=== PATIENT | female | born 1990 | race African-American/Black ===

== ENCOUNTER 2018-08-27 12:17 | Emergency (ER) | payer OTHER ==
[~2018-08-27] VITALS: Ht 170.2 cm; Wt 76.2 kg
[2018-08-27 12:53] VITALS: Ht 170.2 cm; Wt 76.2 kg
[2018-08-27 14:38] VITALS: BP 131/89
== END 2018-08-27 14:38 | disposition home or self-care (01) ==
LOC: ED 12:17
DX: S20.152A Superficial foreign body of breast, left breast, initial encounter (principal); X58.XXXA Exposure to other specified factors, initial encounter; Y93.89 Activity, other specified; Y92.89 Other specified places as the place of occurrence of the external cause; Y99.8 Other external cause status
CPT/HCPCS: J2001

== ENCOUNTER 2020-02-19 20:29 | Emergency (ER) | payer OTHER ==
[~2020-02-19] VITALS: Ht 167.6 cm; Wt 83.6 kg
[2020-02-19 20:45] VITALS: Ht 167.6 cm; Wt 83.6 kg
[2020-02-19 21:52] VITALS: BP 157/94
== END 2020-02-19 21:52 | disposition home or self-care (01) ==
LOC: ED 20:29
DX: S61.215A Laceration without foreign body of left ring finger without damage to nail, initial encounter (principal); S61.217A Laceration without foreign body of left little finger without damage to nail, initial encounter; W26.9XXA Contact with unspecified sharp object(s), initial encounter; Y93.89 Activity, other specified; Y92.89 Other specified places as the place of occurrence of the external cause; Y99.8 Other external cause status
CPT/HCPCS: 90715; J2001